=== PATIENT | female | born 1965 | race Caucasian/White ===

== ENCOUNTER 2020-06-22 22:41 | Emergency (ER) | payer SELFPAY ==
[~2020-06-22] VITALS: Ht 165.1 cm; Wt 154.6 kg
[2020-06-22 23:36] LABS: BASOPHILS % (AUTO) 1 % (0-1); EOSINOPHILS % (AUTO) 3 % (1-7); LYMPHOCYTES % (AUTO) 29 % (22-44); MEAN CORPUSCULAR HEMOGLOBIN 28.3 pg (27.0-34.8); MEAN PLATELET VOLUME 7.8 fL (7.4-10.4); MONOCYTES % (AUTO) 5 % (2-9); NEUTROPHILS % (AUTO) 62 % (42-75); PLATELET COUNT 392 x10^3/uL (130-400); RED BLOOD COUNT 4.34 x10^6/uL (3.82-5.3); RED CELL DISTRIBUTION WIDTH 15.3 % (9.6-15.2)
[2020-06-22 23:37] LABS: MD NO
[2020-06-22 23:49] LABS: ALANINE AMINOTRANSFERASE 18 U/L (12-78); ALBUMIN 3.3 g/dL (3.4-5.0); ANION GAP 5 mmol/L (5-15); CALCIUM 8.6 mg/dL (8.5-10.1); CHLORIDE 105 mmol/L (98-107); CREATININE 0.82 mg/dL (0.55-1.02)
[2020-06-22 23:51] LABS: ALKALINE PHOSPHATASE 80 U/L (45-117); BILIRUBIN,TOTAL 0.3 mg/dL (0.2-1.0); TOTAL PROTEIN 7.8 g/dL (6.4-8.2)
--- NOTE | 2020-06-22 23:51 | NUR ---
PT CAME IN TODAY BECAUSE SHE WAS HAVING INCREASED SWELLING AND PAIN IN LEFT LEG. PT STATES SHE HAS HAD CELLULITIS LIKE THIS IN THE PAST FOR HER RIGHT LEG BUT NEVER HER LEFT. PT RESTING IN BED, ON CONTIUOUS PULSE OX, AND BP CUFF. ERP EVALED PT. PT STATES 5/10 PAIN BUT NO NEEDS AT THIS TIME
[2020-06-23] MEDS ORDERED: CLINDAMYCIN 300 MG CAPSULE PO ONE (01:30)
[2020-06-23] MEDS ORDERED: HYDROcodone/APAP 5/325 TABLET PO ONE (01:30)
[2020-06-23] MEDS ORDERED: CLINDAMYCIN 300 MG CAPSULE ONE (01:39)
--- NOTE | 2020-06-23 01:42 | NUR ---
THIS RN SPOKE WITH PT, AND BECAUSE SHE IS DRIVING HOME PT IS OK NOT TAKING NORCO AT THIS TIME. PT STATES SHE WILL TAKE OTC PAIN RELIVERS AT HOME
[2020-06-23 01:50] VITALS: BP 149/81
== END 2020-06-23 02:06 | disposition home or self-care (01) ==
LOC: ED 06-23 01:24
DX: M79.662 Pain in left lower leg (principal); L03.116 Cellulitis of left lower limb
CPT/HCPCS: 36415; 80053; 85025; 99284